=== PATIENT | female | born 1990 | race African-American/Black ===

== ENCOUNTER 2017-02-20 10:51 | Emergency (ER) | payer OTHER, SELFPAY ==
[2017-02-20] MEDS ORDERED: Ibuprofen 200 MG TAB ONE (12:31)
== END 2017-02-20 13:13 | disposition home or self-care (01) ==
LOC: ERS 10:51
DX: J10.1 Influenza due to other identified influenza virus with other respiratory manifestations (principal); I10 Essential (primary) hypertension
CPT/HCPCS: 87081; 87430; 99283

== ENCOUNTER 2017-06-01 11:27 | Emergency (ER) | payer OTHER ==
[2017-06-01 12:26] LABS: #Basophils 0.1 thou/uL (0.0-0.2); #Eosinphils 0.2 thou/uL (0.0-0.7); #Lymphocytes 1.7 thou/uL (1.20-3.40); %Basophils 1.1 % (0.0-1.0); %Eosinophils 2.5 % (0.0-10.0); %Lymphocytes 21.8 % (21.0-51.0); %Monocytes 12.5 % (0.0-10.0); Hemoglobin 11.8 g/dL (12.0-16.0); Mean Corpuscular HGB CONC 32.5 g/dL (32.0-36.0); Mean Corpuscular Hemoglobin 27.5 pg (27.0-31.0); Mean Corpuscular Volume 84.5 fl (81.0-99.0); Mean Platelet Volume 8.9 fL (7.4-10.4); Platelet Count 225 thou/uL (130-400); RBC Distribution Width 14.4 % (11.5-14.5)
[2017-06-01 12:33] LABS: ALT (SGPT) 13 U/L (8-55); AST (SGOT) 16 U/L (5-34); Albumin 3.9 g/dL (3.5-5.0); Alkaline Phosphatase 54 U/L (40-150); Anion Gap 10 mmol/L (10-20); BUN (Urea Nitrogen) 7 mg/dL (7.0-18.7); Bilirubin, Total 0.2 mg/dL (0.2-1.2); Calc. Creatinine Clearance 0 mL/min (70-130); Calcium 9.5 mg/dL (7.8-10.44); Carbon Dioxide 26 mmol/L (22-29); Chloride 107 mmol/L (98-107); Estimated GFR-MDRD Greater than 90; Globulin 3.1 g/dL (2.4-3.5); Glucose 88 mg/dL (70-105); Sodium 139 mmol/L (136-145)
[2017-06-01] MEDS ORDERED: Ondansetron ODT 8 MG TAB ONE (12:59)
[2017-06-01 13:29] LABS: Bilirubin Negative (Negative); Blood, Urine Negative (Negative); Clarity CLOUDY (Clear); Glucose, Urine (Dipstick) Negative (Negative); Leukocyte Moderate (Negative); Nitrite Positive (Negative); Protein, Urine (Dipstick) Trace mg/dL (Neg-Trace); Specific Gravity, Urine 1.021 (1.002-1.036); Urobilinogen 0.2 mg/dL (0.2-1.0); pH, Urine 6.5 (5.0-9.0)
[2017-06-01 13:32] LABS: Bacteria/HPF 4+ HPF (None Seen); Pathc Cast-AUWi Flag 0.72 (0-2.49); WBC/HPF 21-50 HPF (0-3)
[2017-06-01] MEDS ORDERED: Cephalexin 250 MG CAP ONE (13:39)
[2017-06-01 14:07] LABS: Other Casts/LPF None Seen LPF (0-3 Hyaline)
== END 2017-06-01 13:52 | disposition home or self-care (01) ==
LOC: ERS 11:27
DX: O23.41 Unspecified infection of urinary tract in pregnancy, first trimester (principal); O21.9 Vomiting of pregnancy, unspecified; O99.89 Other specified diseases and conditions complicating pregnancy, childbirth and the puerperium; R19.7 Diarrhea, unspecified; O10.919 Unspecified pre-existing hypertension complicating pregnancy, unspecified trimester; Z3A.01 Less than 8 weeks gestation of pregnancy
CPT/HCPCS: 36415; 80053; 81003; 81015; 84702; 85025; 96372

== ENCOUNTER 2017-07-01 12:02 | Emergency (ER) | payer OTHER, MEDICAID ==
[2017-07-01] MEDS ORDERED: diphenhydrAMINE 25 MG CAP ONE (12:47)
[2017-07-01] MEDS ORDERED: Metoclopramide HCl 10 MG TAB ONE (12:47)
[2017-07-01] MEDS ORDERED: Acetaminophen 325 MG TAB ONE (12:47)
== END 2017-07-01 14:20 | disposition home or self-care (01) ==
LOC: ERS 12:02
DX: O99.89 Other specified diseases and conditions complicating pregnancy, childbirth and the puerperium (principal); R51 Headache; I10 Essential (primary) hypertension; Z79.82 Long term (current) use of aspirin; Z3A.10 10 weeks gestation of pregnancy
CPT/HCPCS: 99283

== ENCOUNTER 2017-12-14 15:59 | Inpatient (IN) | payer OTHER ==
[2017-12-14 16:31] VITALS: BMI 36.3
[2017-12-14 17:41] LABS: Hemoglobin 9.4 g/dL (12.0-16.0); Mean Corpuscular Hemoglobin 24.5 pg (27.0-31.0); Mean Corpuscular Volume 74.1 fL (78.0-98.0); Mean Platelet Volume 10.7 fL (7.4-10.4); Platelet Count 192 thou/uL (130-400); RBC Distribution Width 16.3 % (11.5-14.5); Red Blood Cell (RBC) Count 3.83 mill/uL (4.20-5.40); White Blood Cell (WBC) Count 8.4 thou/uL (4.8-10.8)
[2017-12-14] MEDS ORDERED: Ondansetron HCl/PF 4 MG/2 ML Vial IVP PRN (17:54)
[2017-12-14] MEDS ORDERED: Promethazine HCl 25 MG/ML VIAL IM PRN (17:54)
--- NOTE | 2017-12-14 18:00 | PDOC.FPROB ---
FMR OB H&P: HPI - History of Present Illness Chief Complaint: Elevated BP Indentification: 27 year old @ 34.2 wks by LMP/7.6 wk sono History of Present Illness: Tona Lei is a 27 year old at 34.2 weeks who was sent from clinic this afternoon due to having severe range pressures. Pt denies headache, scotoma, abdominal pain/n/v/d. She reports some swelling in her upper extremities. She denies vaginal bleeding, LOF, and decrease in movement. She is being followed by MFM. Primary Care Physician: Dr. Thai Cruz FMR OB H&P: Current - Care : 4 Para: 3 - OB Labs Blood type: O RH: positive (adfasdf) Antibody Screen: negative HIV: positive RPR: negative HepBsAg: negative Rubella: immune Gonorrhea: negative Chlamydia: negative 1 hour gtt: Failed - 177 GBS: unknown H&H: 9.5/28.8 Platelets: 207 Additional labs: Baseline Cr: 0.6 (06/2017) 24 hr urine: 333 mg (06/2017) - First Trimester Ultrasound First trimester: Single IUP with no anomalies noted; FHR 147 bpm. - Anatomy Survey Anatomy survey: Cephalic presentation Anterior fundal placenta Suspected CHD () noted. - Additional Ultrasound Additional: Follow-up US (10/01/17) Breech presentation, heart defect noted. FMR OB H&P: History - Past Medical History PMH: Chronic hypertension - OB History OB History: Chronic hypertension on ASA and Labetalol First : @ term, no complications Second : primary C/S due to placenta previa Thrid : repeat LTCS for failed . 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 Most recent Pap in 06/2017 was normal. - Surgical History Sx History: C/S x 2 - Social History Social History: Denies tobacco, alcohol, and drug use. - Family History Family History: HTN, DM II FMR OB H&P: Medications - Current Home Medications: Medication Instructions Recorded Confirmed Type Aspirin [Ecotrin] 81 mg PO DAILY 12/14/17 12/14/17 History Ferrous Sulfate 325 mg PO BID 12/14/17 12/14/17 History Labetalol [Normodyne] 300 mg PO BID 12/14/17 History Pnv 102/Iron/Folic/Dha/Lutein 12/14/17 History [Similac Combo Pack] Allergies/Adverse Reactions: Allergies Allergy/AdvReac Type Severity Reaction Status Date / Time No Known Drug Allergies Allergy Verified 12/14/17 16:32 FMR OB H&P: ROS - Review of Systems General: denies: fever/chills Eyes: denies: eye pain, vision changes, scotomas Cardiovascular: denies: chest pain, palpitation Respiratory: denies: cough, shortness of breath Gastrointestinal: denies: abdominal pain, nausea, vomiting, constipation Genitourinary (Female): denies: vaginal bleeding, contractions Musculoskeletal: denies: swelling Neurologic: denies: headache Integumentary: denies: itching, rash Psychological: denies: depression, anxiety FMR OB H&P: Vital Signs - Maternal Vital signs: Vital Signs - First Documented Temp Pulse Resp BP Pulse Ox 98.2 F 123 H 18 139/95 H 99 12/14/17 16:27 12/14/17 16:27 12/14/17 16:27 12/14/17 16:27 12/14/17 16:27 - Heart Tones Baseline: 150 Variability: moderate Acceleration: present Deceleration: absent Category: category 1 [place] contractions every: absent FMR OB H&P: Physical Exam - Physical Exam General: NAD, awake, alert and oriented HEENT: normocephalic and atraumatic, EOMI Neck: supple Heart: normal S1/S2, no murmurs/rubs/gallops, pulses present, no edema, other ( tachycardic) General: CTAB Abdomen: soft, gravid Musculoskeletal: FROM in all four extremities Neurological: cranial nerves II through XII intact, DTR +2, no clonus Skin: no rash Psychiatric: normal mood and affect FMR OB H&P: Results - Labs Lab results: Laboratory Results - last 24 hr 12/14/17 17:24 WBC 8.4 RBC 3.83 L Hgb 9.4 L Hct 28.3 L MCV 74.1 L MCH 24.5 L MCHC 33.0 RDW 16.3 H Plt Count 192 MPV 10.7 H FMR OB H&P: A/P Disposition: Pt is a 27 year old @ 34.2 weeks with a history of chronic hypertension with recent severe range pressures. - we will admit pt for observation overnight - will rule out super-imposed pre-eclampsia with severe features with CBC, CMP, uric acid, and urine/protein cr, and 24 hr-urine - serial BP monitoring. - We will also obtain BPP with growth scan. - given that pt has had diffculty completing 3-hr GTT outpatient, will order for tomorrow morning. - c/s has already been scheduled for 37 wks gestation (01/07/18) - If pt has recurrent severe hypertension, pt develops severe symptoms, or if BPP/growth are abnormal will need to pursue delivery urgently Attending Addendum - Attending Addendum Date/Time: 12/14/171937 I personally evaluated the patient and discussed the management with Dr. Nugent. I agree with and repeated the History, Examination, Assessment and Plan documented above with any addition or exceptions noted below. Patient with no severe symptoms and pressures c/w home pressures. Exam mild tachycardia, regular, no w/r/r or crackles, no clonus or increased dtr's. Due to pressures she was sent over for will observe for 24h urine. Monitor HR and BP.
[2017-12-14 18:07] LABS: ALT (SGPT) Less than 7 U/L (8-55); AST (SGOT) 12 U/L (5-34); Albumin 3.5 g/dL (3.5-5.0); Alkaline Phosphatase 120 U/L (40-150); Anion Gap 12 mmol/L (10-20); BUN (Urea Nitrogen) 4 mg/dL (7.0-18.7); Bilirubin, Total 0.4 mg/dL (0.2-1.2); Calc. Creatinine Clearance 216 mL/min (70-130); Calcium 8.8 mg/dL (7.8-10.44); Carbon Dioxide 19 mmol/L (22-29); Chloride 108 mmol/L (98-107); Estimated GFR-MDRD Greater than 90; Globulin 2.9 g/dL (2.4-3.5); Glucose 80 mg/dL (70-105); Potassium 3.7 mmol/L (3.5-5.1); Protein, Total 6.4 g/dL (6.0-8.3); Sodium 135 mmol/L (136-145); Uric Acid 4.3 mg/dL (2.6-6.0)
[2017-12-14] MEDS ORDERED: Ferrous Sulfate 325 MG TAB PO SCH (18:45)
[2017-12-14 19:14] LABS: Creatinine, Urine 98.24 mg/dL (47-110)
--- NOTE | 2017-12-14 21:28 | ULT ---
LIMITED OBSTETRICAL ULTRASOUND BIOPHYSICAL PROFILE: 12/14/17 COMPARISON: None. HISTORY: Growth scan, patient with hypertension. TECHNIQUE: Multiplanar pinon scale sonographic imaging of the gravid uterus obtained. FINDINGS: A single intrauterine gestation is present demonstrating a vertex presentation. Placenta is located a nteriorly with no evidence for previa or abruption. heart rate is 132 beats per minute. Secondary to gestational, anatomy is not well assessed on this exam. The intracranial con tents and spine are note well assessed. Urinary bladder and kidneys appear grossly unremarkable. Four chamber heart view appears within normal limits. A three vessel cord is present. Amniotic fluid index is 14 cm. Umbilical arterial doppler is performed with color flow and spectral analysis demonstrating a peak sy stolic velocity of 88 cm/s and a systolic/diastolic ratio of 2.1. BIOMETRY: BPD 8.6 cm 34 weeks, 5 days HC 32.0 cm 36 weeks, 1 day AC 31.7 cm 35 weeks, 4 days FL 6.9 cm 35 weeks, 3 days Average age based on ultrasound is 35 weeks, 3 days with estimated date of delivery on 01/15/18. Estim ated weight is 2697 grams plus/minus 399 grams. The triage register nurse reports a 2 out of 2 score for tone, breathing, movement and amniot ic fluid, consistent with a normal 8 out of 8 biophysical profile. IMPRESSION: Obstetrical ultrasound and biophysical profile as described above. POS: [facility]
[2017-12-14] MEDS: Labetalol 100 MG TAB PO SCH (21:30)
[2017-12-14] MEDS ORDERED: Acetaminophen 500 MG TAB PO SCH (22:30)
[2017-12-14] MEDS: Lactated Ringer's 1,000 ML IV SCH (22:40)
--- NOTE | 2017-12-15 06:01 | PDOC.FM ---
- Subjective Subjective: Patient has headache that started right after arriving to the hospital. States that tylenol did not help. Otherwise feeling well. States she is having a baby boy and has boys at home! - Objective Vital Signs & Weight: Vital Signs (12 hours) Temp Pulse Resp BP 12/15/17 05:00 98.4 F 18 12/14/17 23:00 98.4 F 78 12/14/17 21:30 78 140/90 12/14/17 21:00 98.4 F 78 18 Weight Weight 96.162 kg Result Diagrams: 12/14/17 17:24 12/14/17 17:24 <Candis Pak - Last Filed: 12/15/17 07:22> - Objective Vital Signs & Weight: Vital Signs (12 hours) Pulse BP 12/15/17 09:01 100 121/69 Weight Weight 96.162 kg Result Diagrams: 12/14/17 17:24 12/14/17 17:24 <Neto Mcelroy - Last Filed: 12/15/17 17:50> Phys Exam - Physical Examination Constitutional: NAD HEENT: PERRLA dry MMM Neck: no nodes, supple Respiratory: no wheezing, clear to auscultation bilateral Cardiovascular: RRR 1/6 systolic murmur Gastrointestinal: soft, positive bowel sounds gravid Musculoskeletal: pulses present no pitting edema Neurological: moves all 4 limbs patellar reflexes 2+, ankle clonus not present Psychiatric: normal affect, A&O x 3 Skin: no rash <Candis Pak - Last Filed: 12/15/17 07:22> Dx/Plan (1) Chronic hypertension Code(s): I10 - ESSENTIAL (PRIMARY) HYPERTENSION Status: Chronic (2) headache in third trimester Code(s): O26.893 - OTH RELATED CONDITIONS, THIRD TRIMESTER; R51 - HEADACHE Status: Acute - Plan Plan: Disposition: Pt is a 27 year old @ 34.2 weeks with a history of chronic hypertension with recent severe range pressures. - admitted for observation overnight - will rule out super-imposed pre-eclampsia with severe features with CBC, CMP, uric acid, and urine/protein cr, and 24 hr-urine -24 hr urine pending -CBC, CMP, Uric Acid WNL - serial BP monitoring. VSS overnight - BPP 8. POLINA adequate. Growth appropriate. Anterior placenta. EFW 2697 g +/- 399 g - 3-hr GTT today, as patient did not passed 1 hr glucose and 3 hr was not performed - c/s has already been scheduled for 37 wks gestation (01/07/18) - Consider adding reglan/benadryl since her headache was non-responsive to tylenol - If pt has recurrent severe hypertension or if pt develops severe symptoms will need to pursue delivery urgently - Plan to discharge today with precautions if VSS and if 24 hr protein WNL Pt is HIV negative, entered in error on her H&P. <Candis Pak - Last Filed: 12/15/17 07:22> Attending Addendum - Attending Addendum Date/Time: 12/15/17 [id number] I personally evaluated the patient and discussed the management with Dr. Pak. I agree with and repeated the History, Examination, Assessment and Plan documented above with any addition or exceptions noted below. No severe symptoms or signs. Shortly after rounding her headache resolved with just tylenol. Her labs are thus far reassuring, as are her pressures. Anticipate discharge if no worsening of the above. <Neto Mcelroy - Last Filed: 12/15/17 17:50>
[2017-12-15] MEDS ORDERED: Metoclopramide HCl 10 MG/2 ML VIAL IVP SCH (08:45)
[2017-12-15] MEDS: Ferrous Sulfate 325 MG TAB PO SCH (09:00)
[2017-12-15] MEDS: Labetalol 100 MG TAB PO SCH ×2 (09:01→21:12)
[2017-12-15] MEDS ORDERED: Acetaminophen 325 MG TAB PO PRN (09:17)
[2017-12-15] MEDS: Lactated Ringer's 1,000 ML IV SCH ×2 (09:55→12:47)
[2017-12-15] MEDS ORDERED: Metoclopramide HCl 10 MG/2 ML VIAL IM SCH (12:15)
[2017-12-15] MEDS ORDERED: diphenhydrAMINE 50 MG/ML VIAL IM SCH (12:15)
[2017-12-15] MEDS: diphenhydrAMINE 25 MG CAP PO SCH ×2 (12:47→21:12)
[2017-12-15] MEDS ORDERED: metFORMIN 500 MG TAB PO SCH (19:15)
--- NOTE | 2017-12-15 19:27 | PDOC.EVN ---
Event Note - Event Note Event Note: Failed 3hr GTT. Stating fasting and 2 hr PP accuchecks. Start metformin 500 mg BID. Will need to be d/c with rx for glucometer and needs diabetic teaching.
[2017-12-15] MEDS ORDERED: Dextrose 5% in Water 1,000 ML IV PRN (19:28)
[2017-12-15] MEDS ORDERED: Dextrose 50% Abboject 50 ML SYRINGE SLOW IVP PRN (19:28)
[2017-12-15] MEDS ORDERED: HumaLOG 300 UNITS/3 ML VIAL SC PRN ×2 (19:28)
[2017-12-15 19:29] LABS: Collection Duration 24 hrs; Urine Total Volume 2200 mL (600-1600)
[2017-12-15 19:51] LABS: Protein, Urine Less than 10 mg/dL (1-14)
[2017-12-15] MEDS ORDERED: Labetalol HCl 100 MG/20 ML VIAL ONE (21:00)
[2017-12-15] MEDS ORDERED: diphenhydrAMINE 25 MG CAP PO PRN (21:05)
--- NOTE | 2017-12-16 06:23 | PDOC.FM ---
- Subjective Subjective: Feeling well this morning, no headache. Says she feels tired this morning. Baby is moving well. - Objective Vital Signs & Weight: Vital Signs (12 hours) Temp Pulse 12/15/17 21:12 104 H 12/15/17 19:52 98.9 F 104 H 12/15/17 19:00 98.9 F Weight Weight 96.162 kg Result Diagrams: 12/14/17 17:24 12/14/17 17:24 <Candis Pak - Last Filed: 12/16/17 07:31> - Objective Vital Signs & Weight: Vital Signs (12 hours) Pulse BP 12/16/17 10:14 112 H 137/90 Weight Weight 96.162 kg Result Diagrams: 12/14/17 17:24 12/14/17 17:24 <Neto Mcelroy - Last Filed: 12/16/17 10:27> Phys Exam - Physical Examination Constitutional: NAD Neck: no nodes, supple Respiratory: no wheezing, clear to auscultation bilateral Cardiovascular: no significant murmur Regular rhythm, tachycardic Gastrointestinal: soft, positive bowel sounds gravid Musculoskeletal: no edema, pulses present Neurological: moves all 4 limbs Patellar reflexes 2+ Psychiatric: normal affect, A&O x 3 Skin: normal turgor <Candis Pak - Last Filed: 12/16/17 07:31> Dx/Plan (1) Chronic hypertension Code(s): I10 - ESSENTIAL (PRIMARY) HYPERTENSION Status: Chronic (2) headache in third trimester Code(s): O26.893 - OTH RELATED CONDITIONS, THIRD TRIMESTER; R51 - HEADACHE Status: Acute - Plan Plan: Pt is a 27 year old @ 34.2 weeks with a history of chronic hypertension with recent severe range pressures and new dx GDM. Chronic HTN with severe range pressures - blood pressures stable - Ruled out super-imposed pre-eclampsia with severe features with CBC, CMP, uric acid, and urine/protein cr, and 24 hr-urine -24 hr urine negative (protein too small to quantify) -CBC, CMP, Uric Acid WNL - BPP 10/17. POLINA adequate. Growth appropriate. Anterior placenta. EFW 2697 g +/- 399 g - If pt has recurrent severe hypertension or if pt develops severe symptoms will need to pursue delivery urgently - Patient has home BP cuff, discussed taking pressures at home, and going to ED if pressures >160/110 sIUP - c/s has already been scheduled for 37 wks gestation (01/07/18) - BPP 10/17. POLINA adequate. Growth appropriate. Anterior placenta. EFW 2697 g +/- 399 g Headache, most likely Migraines - Pt has history of migraines - Sensitive to light - Headache yesterday was responsive to tylenol GDM -started on metformin 500 BID yesterday, discussed side effect of nausea/ gastric upset -Discussed risk of macrosomia and hypoglycemia in -DM education today -Discharge with glucometer, close follow up with PCP -Discussed recording fasting and PP glucoses at home. <Candis Pak - Last Filed: 12/16/17 07:31> Attending Addendum - Attending Addendum Date/Time: 12/16/17 1026 I personally evaluated the patient and discussed the management with Dr. Pak. I agree with and repeated the History, Examination, Assessment and Plan documented above with any addition or exceptions noted below. Negative protein. BP's extremely well controlled. No severe symptoms, abd pain , headache, n/v/f/c. +FM. No ctx. Reassuring FHTs. Plan for d/c today with close follow up. Diabetic supplies and metformin Rx'd. Continue ASA, PNV, iron at home. <Neto Mcelroy - Last Filed: 12/16/17 10:27>
[2017-12-16] MEDS ORDERED: metFORMIN 500 MG TAB PO SCH (08:00)
[2017-12-16] MEDS: Labetalol 100 MG TAB PO SCH (10:14)
[2017-12-16] MEDS: Ferrous Sulfate 325 MG TAB PO SCH (10:15)
[2017-12-16 10:29] VITALS: TEMP 98.4
[2017-12-16 10:52] VITALS: BP 133/77
--- NOTE | 2017-12-17 21:52 | DIS-2 ---
DATE OF ADMISSION: 12/14/2017 DATE OF DISCHARGE: 12/16/2017 RESIDENT: Candis Pak MD ADMITTING ATTENDING: Neto Mcelroy MD DISCHARGE ATTENDING: Neto Mcelroy MD CONSULTATIONS: None. PROCEDURES: 1. BPP on 12/14/2017 was 8/8, POLINA was 14. 2. ultrasound on 12/14/2017 findings: Single intrauterine gestation present demonstrating vertex presentation. Placenta is located anteriorly with no evidence of previa or abruption. heart rate is 132 beats per minute. Three-cord vessel present. PRIMARY DIAGNOSIS: 1. Chronic hypertension with severe range pressures during . 2. Gestation Diabetes Mellitus. SECONDARY DIAGNOSES: 1. Single intrauterine . 2. Migraines DISCHARGE MEDICATIONS: 1. Aspirin 81 mg p.o. daily. 2. Ferrous sulfate 325 mg p.o. b.i.d. 3. Labetalol 300 mg p.o. b.i.d. 4. Metformin 500 mg p.o. b.i.d. with meals. 5. vitamin 1 tab p.o. daily. DISCONTINUED MEDICATIONS: None. HISTORY OF PRESENT ILLNESS AND HOSPITAL COURSE: Tona Lei is a 27-year-old G4, P3 at 34.4 weeks by LMP, consistent with 7.6-week sono. She was sent from clinic due to having severe range pressures. The patient denied headache, scotoma, abdominal pain, nausea, vomiting, or diarrhea. She reported some swelling in upper extremities. She denied vaginal bleeding, loss of fluid, and decreased movement. She was being followed by [facility]. Her primary care physician is Dr. Thai Cruz. For her chronic hypertension with concern for preeclampsia, her blood pressures remained stable in the hospital. A 24-hour urine was negative. Protein was too small to quantify. CBC, CMP, uric acid, urine protein creatinine ratio were all within normal limits. BPP was 8/8. POLINA was adequate. Growth is appropriate. Ultrasound showed an anterior placenta. Estimated weight was 2697 grams. The patient has a home blood pressure cuff. She was instructed to take her pressures at home and to return to the emergency room if her blood pressures exceeded 160/110. For a single intrauterine , a has been scheduled for 37 weeks ' gestation on 01/07/2018. For her headache, these are most likely migraines. The patient has light sensitivity. Her headache was responsive to Tylenol. Gestational diabetes. She has had a 3-hour GTT performed. She failed the 3- hour GTT. She was started on metformin 500 b.i.d. The side effects of nausea and gastric upset were discussed. We discussed the risks of macrosomia, and hypoglycemia in the . The patient was discharged with a prescription for glucometer and test strips, and instructed to take fasting and postprandial 2- hour glucoses at home and record her numbers. The patient can follow up with her PCP. DISPOSITION: Stable. DISCHARGE INSTRUCTIONS: 1. Location: Home. 2. Diet: Diabetic diet. 3. Activity: As tolerated. 4. Follow up with PCP within 7 days. PIERRE
== END 2017-12-16 10:56 | disposition home health service (06) | DRG 833 ==
LOC: L&D/OP 15:59 → L&D 18:23
PROVIDERS: ADMIT Student in an Organized Health Care Education/Training Program; ATTEND Student in an Organized Health Care Education/Training Program
DX: O10.913 Unspecified pre-existing hypertension complicating pregnancy, third trimester (principal); Z3A.34 34 weeks gestation of pregnancy; O24.419 Gestational diabetes mellitus in pregnancy, unspecified control; G43.909 Migraine, unspecified, not intractable, without status migrainosus
CPT/HCPCS: 36415; 36416; 76815; 76819; 80053; 82570; 82951; 82952; 84156; 84550; 85027; 99285; J1200; J2765

== ENCOUNTER 2017-12-21 22:04 | Observation (INO) | payer OTHER ==
[2017-12-21 22:45] VITALS: BMI 36.0
[2017-12-21] MEDS ORDERED: Lactated Ringer's 1,000 ML IV SCH (23:30)
--- NOTE | 2017-12-22 | PDOC.FPROB ---
FMR OB H&P: HPI - History of Present Illness Chief Complaint: Contractions, Palpitations Indentification: 27 year old History of Present Illness: 27 year old at 35.2 wks by LMP/7.6 wk sonmarilee with LULA of 01/23/2018 presents with contractions that were 3-5 minutes apart and lasted from 7-9 PM. Patient states that upon arriving to the ED, her contractions resolved. She also endorses feeling of racing heart associated with mild shortness of breath. Patient denies headache, vision changes, scotoma, RUQ pain, edema, vaginal discharge, vaginal bleeding. Patient endorses good movement. Primary Care Physician: KARUNA Cruz FMR OB H&P: Current - Care : 4 Para: 3 Gestational age: 35.3 wks Due date: 01/23/2018 Dating Criteria: LMP/7.6 wk ultrasound - OB Labs Blood type: O RH: positive Antibody Screen: negative HIV: negative RPR: negative HepBsAg: negative Rubella: immune Gonorrhea: negative Chlamydia: negative Pap Smear: negative for intraepithelial lesion or malignancy 1 hour gtt: 177 3 hour GTT: 101, 161, 164, 133 GBS: unknown H&H: 9.2/29.2 Platelets: 204 FMR OB H&P: History - Past Medical History PMH: HTN - OB History OB History: GDM, cHTN, Hx of pre-E in prior with C/S at 36 wks, Hx of placenta previa s/p C/S - Surgical History Sx History: CS x2 - Social History Social History: Denies alcohol, drug, or tobacco use FMR OB H&P: Medications - Current Home Medications: Medication Instructions Recorded Confirmed Type Aspirin [Ecotrin Low Strength] 81 mg PO DAILY 12/14/17 12/21/17 History Ferrous Sulfate 325 mg PO BID 12/14/17 12/21/17 History Labetalol [Normodyne] 300 mg PO BID 12/14/17 12/21/17 History Pnv 102/Iron/Folic/Dha/Lutein 1 tab PO DAILY 12/14/17 12/21/17 History [Similac Combo Pack] metFORMIN [Glucophage] 500 mg PO BID-WM #30 tab 12/16/17 12/21/17 Rx Metoclopramide HCl [Reglan] 5 mg PO BID PRN 12/21/17 12/21/17 History diphenhydrAMINE [Benadryl] 25 mg PO HS PRN 12/21/17 12/21/17 History Allergies/Adverse Reactions: Allergies Allergy/AdvReac Type Severity Reaction Status Date / Time No Known Drug Allergies Allergy Verified 12/14/17 16:32 FMR OB H&P: ROS - Review of Systems General: denies: fever/chills, weight/appetite/sleep changes, fatigue Eyes: denies: vision changes, double vision, scotomas ENT: denies: nasal congestion, rhinorrhea, sore throat Cardiovascular: reports: palpitation. denies: chest pain, edema Respiratory: reports: shortness of breath. denies: cough, congestion Gastrointestinal: denies: abdominal pain, nausea, vomiting, diarrhea Genitourinary (Female): reports: polyuria. denies: dysuria, hematuria, vaginal discharge, vaginal pain, vaginal bleeding, contractions, vaginal pressure Musculoskeletal: denies: pain Neurologic: denies: seizures, weakness Integumentary: denies: itching, rash Hematologic/Lymphatic: denies: prolonged or excessive bleeding Psychological: denies: depression, anxiety FMR OB H&P: Vital Signs - Maternal Vital signs: Vital Signs - First Documented Temp Pulse Resp BP 98.7 F 122 H 16 129/87 12/21/17 22:38 12/21/17 22:38 12/21/17 22:38 12/21/17 22:38 - Heart Tones Baseline: 130 Variability: moderate Acceleration: present Deceleration: absent Category: category 1 [place] contractions every: Few; irregular FMR OB H&P: Physical Exam - Physical Exam General: NAD, awake, alert and oriented HEENT: normocephalic and atraumatic, MMM, grossly normal vision, grossly normal hearing Neck: supple Heart: pulses present, no edema Deviation from normal: Tachycardic, difficult to assess for murmur General: CTAB, no respiratory distress, good air movement, no wheezing Abdomen: soft, gravid, non-tender, bowel sound present Musculoskeletal: pulses present Neurological: no tremor, no focal deficit Skin: no rash, capillary refill <2 seconds Psychiatric: good judgement and insight, normal mood and affect FMR OB H&P: A/P - Problem List (1) Tachycardia Current Visit: Yes Status: Acute Code(s): R00.0 - TACHYCARDIA, UNSPECIFIED (2) Chronic hypertension affecting Current Visit: Yes Status: Chronic Code(s): O10.919 - UNSP PRE-EXISTING HTN COMP , UNSP TRIMESTER (3) Gestational diabetes Current Visit: Yes Status: Chronic Code(s): O24.419 - GESTATIONAL DIABETES MELLITUS IN , UNSP CONTROL Qualifiers: Trimester: third trimester (4) Current Visit: Yes Status: Acute Qualifiers: Weeks of gestation: 35 weeks Qualified Code(s): Z3A.35 - 35 weeks gestation of Assessment and Plan: 27 year old at 35.3 wks by LMP/7.6 wk sono presents with contractions and "racing heart" 1. Maternal tachycardia - HR 105-130's - Pt adequately rehydrated with 1L of LR - Stable anemia with Hg 9.2; no other VS abnormalities and pt asymptomatic - Pt endorsed shortness of breath initially on presentation. The shortness of breath has since resolved. - CXR pending, will consider VQ scan if negative and D-dimer above threshold in - Echo pending for further evaluation of persistent tachycardia - Continue to monitor pulse - TSH pending 2. cHTN - Concern for superimposed pre-eclampsia - Previously well controlled BP on medication; elevated value x1 >140/90 - Repeat SBP 130's - Pt at risk for PTD; given one dose of steroids now and advised that would need 2nd dose in 24 hours - Continue to monitor BP - Continue current dose of labetolol BID - Pt scheduled for rLTCS on 01/07/2018 3. GDM - Q6H accuchecks - CC diet - Continue metformin 4. Vaginal discharge - Green/foul smelling - VP3 pending - No hx of STD's and pt endorses being with same partner. Pt has no concerns about STD's 5. Hx of Pre-E - Pre-E labs negative thus far; still pending Uprotein/Ucreatinine ratio 6. Hx of placenta previa in prior requiring C/S - Anterior fundal placenta noted on recent ultrasounds Disposition: Stable. Will obs patient and continue further cardiac workup. Discussion: Date/Time: 12/21/17 9842 This H&P was discussed with Dr. Gillis who agrees with the above documentation and plan. Signature: Samantha Montes DO PGY-2 Attending Addendum - Attending Addendum Date/Time: 12/22/17 2459 I personally evaluated the patient and discussed the management with Dr. Amato a time of admission. I agree with the History, Examination, Assessment and Plan documented above with any addition or exceptions noted below.
[2017-12-22 00:29] LABS: Hemoglobin 9.2 g/dL (12.0-16.0); Mean Corpuscular HGB CONC 31.5 g/dL (32.0-36.0); Mean Corpuscular Hemoglobin 23.2 pg (27.0-31.0); Mean Corpuscular Volume 73.7 fL (78.0-98.0); Mean Platelet Volume 11.3 fL (7.4-10.4); Platelet Count 204 thou/uL (130-400); RBC Distribution Width 17.1 % (11.5-14.5); Red Blood Cell (RBC) Count 3.97 mill/uL (4.20-5.40); White Blood Cell (WBC) Count 9.2 thou/uL (4.8-10.8)
[2017-12-22] MEDS ORDERED: Betamet Acet/Betamet Na Ph 30 MG/5 ML VIAL IM SCH (00:45)
[2017-12-22 00:50] LABS: ALT (SGPT) Less than 7 U/L (8-55); AST (SGOT) 13 U/L (5-34); Albumin 3.6 g/dL (3.5-5.0); Alkaline Phosphatase 134 U/L (40-150); Anion Gap 13 mmol/L (10-20); BUN (Urea Nitrogen) 7 mg/dL (7.0-18.7); Bilirubin, Total 0.4 mg/dL (0.2-1.2); Calc. Creatinine Clearance 200 mL/min (70-130); Calcium 9.3 mg/dL (7.8-10.44); Carbon Dioxide 21 mmol/L (22-29); Chloride 106 mmol/L (98-107); Estimated GFR-MDRD Greater than 90; Globulin 2.6 g/dL (2.4-3.5); Glucose 78 mg/dL (70-105); Potassium 4.4 mmol/L (3.5-5.1); Protein, Total 6.2 g/dL (6.0-8.3); Sodium 136 mmol/L (136-145)
[2017-12-22 00:53] LABS: #Eosinphils 0.2 thou/uL (0.0-0.7); #Lymphocytes 2.2 thou/uL (1.20-3.40); #Monocytes 1.1 thou/uL (0.11-0.59); #Neutrophils 5.8 thou/uL (1.40-6.50); %Basophils 0.5 % (0.0-1.0); %Eosinophils 1.9 % (0.0-10.0); %Lymphocytes 23.5 % (21.0-51.0); %Monocytes 11.8 % (0.0-10.0); %Neutrophils 62.3 % (42.0-75.0); Hypochromia SLIGHT = 6-15 cells (100X) (0-5/hpf); MDiff Complete? YES; Microcytosis SLIGHT = 6-15 cells (100X) (0-5/hpf); PLT Morphology Comment Appears Adequate; Tear Drops SLIGHT = 2-5 cells (100X) (0-1/hpf)
[2017-12-22] MEDS ORDERED: Betamet Acet/Betamet Na Ph 30 MG/5 ML VIAL ONE (01:06)
[2017-12-22] MEDS ORDERED: Ondansetron HCl/PF 4 MG/2 ML Vial IVP PRN (01:35)
[2017-12-22] MEDS ORDERED: Promethazine HCl 25 MG/ML VIAL IM PRN (01:35)
[2017-12-22] MEDS ORDERED: Docusate 100 MG CAP PO PRN (01:35)
[2017-12-22 01:58] LABS: Creatinine, Urine 123.54 mg/dL (47-110); Protein, Urine Random Quant Less than 10 mg/dL (1-14)
[2017-12-22] MEDS ORDERED: diphenhydrAMINE 25 MG CAP PO PRN (02:04)
[2017-12-22] MEDS ORDERED: Labetalol 100 MG TAB PO SCH ×2 (02:15→09:00)
--- NOTE | 2017-12-22 02:27 | PDOC.EVN ---
Event Note - Event Note Event Note: D-Dimer within range for (1.10, which is less than the 1.7 cutoff), TSH wnl, Urine protein/creatinine ratio wnl (highest possible value .08) Less concern for PE or thyroid dysfunction. Continue with CXR and echo tomorrow.
[2017-12-22 03:12] VITALS: TEMP 98.3
[2017-12-22] MEDS ORDERED: Non-Formulary Item 1 EACH (Ferrous Sulfate [Ferrous Sulfate] 325 MG) PO SCH (08:00)
[2017-12-22] MEDS ORDERED: metFORMIN 500 MG TAB PO SCH (08:00)
[2017-12-22] MEDS ORDERED: Ferrous Sulfate 325 MG TAB PO SCH (08:00)
--- NOTE | 2017-12-22 08:12 | RAD ---
CHEST 1 VIEW: Date: 12/22/17 HISTORY: 27-year-old female with history of tachycardia and shortness of breath. COMPARISON: 06/12/16. FINDINGS: Heart size is normal, given somewhat less than optimal inspiration and portable technique. No conflue nt pneumonia, overt edema, or pleural effusion. IMPRESSION: Normal to borderline enlarged heart. No pneumonia, edema, pleural effusion, or other acute intrathora cic disease. POS: [facility]
[2017-12-22 08:54] VITALS: BP 137/60
[2017-12-22] MEDS ORDERED: Aspirin 81 mg Enteric Coated Tablet PO SCH (09:00)
[2017-12-22] MEDS ORDERED: Prenatal Vitamin 1 TAB PO SCH (09:00)
--- NOTE | 2017-12-22 11:08 | PDOC.FM ---
- Subjective Subjective: Patient doing well this AM. No significant overnight events. Patient states that it does not feel as though her heart is racing anymore, and she denies shortness of breath, headache, RUQ pain, N/V/D, calf pain. Patient notified of positive BV and trichomonas results today. She was very tearful and upset about the positive trichomonas results. - Objective MAR Reviewed: Yes Vital Signs & Weight: Vital Signs (12 hours) Temp Pulse Resp BP 12/22/17 08:53 105 H 137/60 12/22/17 03:08 98.3 F 105 H 16 12/22/17 02:35 122 H Weight Weight 95.254 kg Result Diagrams: 12/22/17 00:06 12/22/17 00:06 EKG Reviewed by me: Yes (sinus tachycardia) Radiology Reviewed by me: Yes (CXR with borderline cardiomegaly) <Samantha Montes - Last Filed: 12/22/17 12:07> - Objective Vital Signs & Weight: Vital Signs (12 hours) Temp Pulse Resp BP 12/22/17 08:53 105 H 137/60 12/22/17 03:08 98.3 F 105 H 16 12/22/17 02:35 122 H Weight Weight 95.254 kg Result Diagrams: 12/22/17 00:06 12/22/17 00:06 <Tolu Gillis - Last Filed: 12/22/17 12:32> Phys Exam - Physical Examination Constitutional: NAD HEENT: moist MMs Respiratory: no wheezing, clear to auscultation bilateral Tachycardia Gastrointestinal: soft, non-tender Musculoskeletal: no edema, pulses present Neurological: non-focal Psychiatric: A&O x 3 Skin: no rash, cap refill <2 seconds <Samantha Montes - Last Filed: 12/22/17 12:07> Dx/Plan (1) Tachycardia Code(s): R00.0 - TACHYCARDIA, UNSPECIFIED Status: Acute (2) Chronic hypertension affecting Code(s): O10.919 - UNSP PRE-EXISTING HTN COMP , UNSP TRIMESTER Status : Chronic (3) Gestational diabetes Code(s): O24.419 - GESTATIONAL DIABETES MELLITUS IN , UNSP CONTROL Status: Chronic Qualifiers: Trimester: third trimester (4) Status: Acute Qualifiers: Weeks of gestation: 35 weeks Qualified Code(s): Z3A.35 - 35 weeks gestation of - Plan Plan: 27 year old at 35.3 wks by LMP/7.6 wk sono Maternal tachycardia in - HR 105-120's - CXR showed borderline cardiomegaly - PE ruled out; D-dimer 1.1 (normal range for ) - EKG showed sinus tachycardia - TSH wnl - Stable microcytic anemia; 9.4 --> 9.2. Asymptomatic - Echo pending; rule out cardiomyopathy - Will send patient home to do 24 hour urine metanephrines to evaluate for pheochromocytoma; low suspicion cHTN - BP stable; one BP around 23:00 with SBP 148. All other BP's <140/90 - Continue labetolol BID - Continue monitoring BP outpatient - Scheduled for repeat C/S on 01/07/2018; recommend rescheduling to 37 wks GDM - Appears well controlled on metformin - Continue metformin sIUP - at 35.3 weeks - see plan as above Bacterial vaginosis - Flagyl TID for 7 days Trichomonas - Flagyl TID for 7 days - Will test for GC/CT due to positive trichomonas Dispo: Stable. Anticipate d/c home today. Samantha Montes, PGY-2 <Samantha Montes - Last Filed: 12/22/17 12:07> (1) Tachycardia Code(s): R00.0 - TACHYCARDIA, UNSPECIFIED Status: Acute (2) Chronic hypertension affecting Code(s): O10.919 - UNSP PRE-EXISTING HTN COMP , UNSP TRIMESTER Status : Chronic (3) Gestational diabetes Code(s): O24.419 - GESTATIONAL DIABETES MELLITUS IN , UNSP CONTROL Status: Chronic Qualifiers: Trimester: third trimester (4) Status: Acute Qualifiers: Weeks of gestation: 35 weeks Qualified Code(s): Z3A.35 - 35 weeks gestation of <Tolu Gillis - Last Filed: 12/22/17 12:32> Attending Addendum - Attending Addendum Date/Time: 12/22/17 1232 I personally evaluated the patient and discussed the management with Dr. Montes. I agree with the History, Examination, Assessment and Plan documented above with any addition or exceptions noted below. <Tolu Gillis - Last Filed: 12/22/17 12:32>
[2017-12-22] MEDS ORDERED: metroNIDAZOLE 250 MG TAB PO SCH ×2 (12:00→15:00)
--- NOTE | 2017-12-22 12:56 | PDOC.EVN ---
Event Note - Event Note Event Note: Echo showed EF 55-60% with trace mitral and tricuspid regurgitation. Trivial pericardial effusion noted. Plan to d/c patient home. Will send patient home with jug to collect 24 hour urine metanephrines. She will be instructed to take jug to [facility] lab after 24 hours of collection. Patient also advised to come back tomorrow for 2nd steroid injection. Patient will be notified of GC/CT results and treated accordingly. Samantha Montes DO PGY-2 12:52 PM
[2017-12-26 01:41] LABS: Chlamydia by PCR Not Detected (NotDetected); GC by PCR Not Detected (NotDetected)
== END 2017-12-22 14:04 | disposition home or self-care (01) ==
LOC: L&D/OP 22:04 → L&D 12-22 02:56
PROVIDERS: ADMIT Family Medicine; ATTEND Family Medicine
DX: O99.89 Other specified diseases and conditions complicating pregnancy, childbirth and the puerperium (principal); R00.0 Tachycardia, unspecified; O47.1 False labor at or after 37 completed weeks of gestation; O10.013 Pre-existing essential hypertension complicating pregnancy, third trimester; O24.415 Gestational diabetes mellitus in pregnancy, controlled by oral hypoglycemic drugs; O98.313 Other infections with a predominantly sexual mode of transmission complicating pregnancy, third trimester; A59.01 Trichomonal vulvovaginitis; Z3A.35 35 weeks gestation of pregnancy; Z79.82 Long term (current) use of aspirin; Z79.84 Long term (current) use of oral hypoglycemic drugs; Z79.899 Other long term (current) drug therapy
CPT/HCPCS: 36415; 36416; 71045; 80053; 82570; 84156; 84443; 85025; 85379; 87480; 87491; 87510; 87591; 87660; 93005; 93010; 93306; 96372; 99285; G0378; J0702

== ENCOUNTER 2017-12-23 15:19 | Day surgery (SDC) | payer OTHER ==
[2017-12-23] MEDS ORDERED: Betamet Acet/Betamet Na Ph 30 MG/5 ML VIAL IM SCH (16:45)
== END 2017-12-23 15:23 | disposition home or self-care (01) ==
LOC: L&D/OP 15:19
PROVIDERS: ATTEND Family Medicine
DX: Z29.8 Encounter for other specified prophylactic measures (principal); Z79.82 Long term (current) use of aspirin; Z79.899 Other long term (current) drug therapy
CPT/HCPCS: 82384; 82570; 83835; 96372

== ENCOUNTER 2017-12-28 14:11 | Inpatient (IN) | payer OTHER ==
[2017-12-28 15:17] VITALS: BMI 35.9
[2017-12-28] MEDS ORDERED: Ondansetron HCl/PF 4 MG/2 ML Vial IVP PRN (15:48)
[2017-12-28] MEDS ORDERED: Promethazine HCl 25 MG/ML VIAL IM PRN (15:48)
--- NOTE | 2017-12-28 15:55 | PDOC.FPROB ---
FMR OB H&P: HPI - History of Present Illness Chief Complaint: low POLINA at [facility] History of Present Illness: 27 yo @ 36.3 wks by LMP/1TMUS here from [facility] appt today for POLINA of 3. She denies NORIEGA, CP, racing heart, LOF, VB, N/V. Endorses baby movement. Primary Care Physician: KARUNA Cruz FMR OB H&P: Current - Care : 4 Para: 3 Gestational age: 36.3wks Due date: 01/23/2018 Dating Criteria: LMP/7.6wk US - OB Labs Blood type: A RH: positive Antibody Screen: negative HIV: negative RPR: negative HepBsAg: negative Rubella: immune Gonorrhea: negative Chlamydia: negative Pap Smear: negative for intraepithelial lesion or malignancy 1 hour gtt: 177 3 hour GTT: 101, 161, 164, 133 GBS: unknown H&H: 9.2/29.2 Platelets: 204 FMR OB H&P: History - Past Medical History PMH: HTN - OB History OB History: GDM, cHTN, Hx of Pre-E in prior with c/s at 36wks, Hx of placenta previa s/p c/s - Surgical History Sx History: csection x2 - Social History Social History: denies drug, alcohol, or tobacco use FMR OB H&P: Medications - Current Home Medications: Medication Instructions Recorded Confirmed Type Aspirin [Ecotrin Low Strength] 81 mg PO DAILY 12/14/17 12/28/17 History Labetalol [Normodyne] 300 mg PO BID 12/14/17 12/28/17 History Pnv 102/Iron/Folic/Dha/Lutein 1 tab PO DAILY 12/14/17 12/28/17 History [Similac Combo Pack] metFORMIN [Glucophage] 500 mg PO BID-WM #30 tab 12/16/17 12/28/17 Rx Metoclopramide HCl [Reglan] 5 mg PO BID PRN 12/21/17 12/28/17 History diphenhydrAMINE [Benadryl] 25 mg PO HS PRN 12/21/17 12/28/17 History Ferrous Sulfate 325 mg PO BID #60 tablet 12/22/17 12/28/17 Rx metroNIDAZOLE [Flagyl] 250 mg PO TID #20 tab 12/22/17 12/28/17 Rx Allergies/Adverse Reactions: Allergies Allergy/AdvReac Type Severity Reaction Status Date / Time No Known Drug Allergies Allergy Verified 12/28/17 15:29 FMR OB H&P: ROS - Review of Systems General: denies: fever/chills Eyes: denies: vision changes, double vision Cardiovascular: denies: chest pain, palpitation Respiratory: denies: shortness of breath Gastrointestinal: denies: abdominal pain, diarrhea, constipation Genitourinary (Female): denies: incontinence, dysuria Musculoskeletal: denies: pain Neurologic: denies: numbness FMR OB H&P: Vital Signs - Maternal Vital signs: Vital Signs - First Documented Temp Pulse Resp BP Pulse Ox 98.3 F 112 H 20 140/83 98 12/28/17 15:09 12/28/17 15:09 12/28/17 15:09 12/28/17 15:09 12/28/17 15:09 - Heart Tones Variability: moderate Acceleration: absent Deceleration: absent Category: category 1 [place] contractions every: absent FMR OB H&P: Physical Exam - Physical Exam General: NAD, awake, alert and oriented HEENT: EOMI, MMM Neck: supple Heart: normal S1/S2, no murmurs/rubs/gallops, other (tachycardia) General: CTAB, no wheezing Abdomen: soft Musculoskeletal: normal gait and station Neurological: sensation to pain,touch and proprioception grossly normal FMR OB H&P: A/P - Problem List (1) Current Visit: No Status: Acute Qualifiers: Weeks of gestation: 35 weeks Qualified Code(s): Z3A.35 - 35 weeks gestation of (2) Chronic hypertension affecting Current Visit: No Status: Chronic Code(s): O10.919 - UNSP PRE-EXISTING HTN COMP , UNSP TRIMESTER (3) Gestational diabetes Current Visit: No Status: Chronic Code(s): O24.419 - GESTATIONAL DIABETES MELLITUS IN , UNSP CONTROL Qualifiers: Trimester: third trimester (4) Tachycardia Current Visit: No Status: Acute Code(s): R00.0 - TACHYCARDIA, UNSPECIFIED (5) Oligohydramnios Current Visit: Yes Status: Acute Code(s): O41.00X0 - OLIGOHYDRAMNIOS, UNSP TRIMESTER, NOT APPLICABLE OR UNSP Assessment and Plan: 27 yo at 36.3 here for oligohydramnios. Oligohydramnios Will request records from [facility] of the and visit today. Will monitor FHT and toco as well as get a kick count. Admit the patient and plan for c/section in the AM. has received steroids last week x2 GDM accuchecks q6hrs CC diet continue metformin cHTN BP mildly elevated, will continue to monitor for severe range pressures. Hx of PreE pre-e labs negative so far in this , monitor Tachycardia still present in this visit, evaluated at previous visit with no etiology noted Hx of placenta previa anterior fundal placenta Disposition: stable, admit and monitor, plan to do c/section in the AM Discussion: Date/Time: 12/28/17 4712 This H&P was discussed with Dr. Boogie who agree with the above documentation and plan. Signature: Nima Acevedo DO, PGY3
[2017-12-29] MEDS ORDERED: CEFAZOLIN/Water 2 GM/20 ML SYRINGE SLOW IVP SCH (09:45)
[2017-12-29] MEDS ORDERED: Lactated Ringer's 1,000 ML IV SCH (09:45)
[2017-12-29] MEDS ORDERED: Bicitra 30 ML UDCUP PO SCH (09:45)
[2017-12-29] MEDS ORDERED: Morphine PF 1 MG/ML SYR ONE (10:10)
[2017-12-29] MEDS ORDERED: Glycopyrrolate 0.2 MG/ML 5 ML SYRINGE ONE (10:11)
[2017-12-29] MEDS ORDERED: PHENYLEPHRINE-NS 100 MCG/ML 10 ML SYRINGE ONE ×2 (10:11→15:30)
[2017-12-29] MEDS ORDERED: Ketorolac Tromethamine 30 MG/ML VIAL ONE ×2 (10:11→15:30)
[2017-12-29] MEDS ORDERED: Ondansetron HCl/PF 4 MG/2 ML Vial ONE ×2 (10:11→15:30)
[2017-12-29] MEDS ORDERED: Oxytocin 10 UNITS/ML VIAL ONE (10:11)
[2017-12-29 10:12] LABS: Hemoglobin 9.4 g/dL (12.0-16.0); Mean Corpuscular HGB CONC 31.4 g/dL (32.0-36.0); Mean Corpuscular Hemoglobin 23.8 pg (27.0-31.0); Mean Corpuscular Volume 75.9 fL (78.0-98.0); Mean Platelet Volume 10.8 fL (7.4-10.4); Platelet Count 196 thou/uL (130-400); RBC Distribution Width 19.2 % (11.5-14.5); Red Blood Cell (RBC) Count 3.95 mill/uL (4.20-5.40); White Blood Cell (WBC) Count 10.8 thou/uL (4.8-10.8)
[2017-12-29] MEDS ORDERED: Bupivacaine 0.75% W/DEXTROSE 8.25% 2 ML AMP ONE (10:12)
[2017-12-29] MEDS ORDERED: Lidocaine 1% PF 5 ML VIAL ONE ×2 (10:12→11:12)
[2017-12-29 10:29] LABS: Glucose 84 mg/dL (70-105)
[2017-12-29] MEDS ORDERED: L&D-Morphine 4 MG/ML VIAL SLOW IVP PRN (10:34)
[2017-12-29] MEDS ORDERED: Eucerin (Mineral Oil/Petrolatum,White) 30 gm Jar TOP PRN (10:34)
[2017-12-29] MEDS ORDERED: HYDROmorphone 2 MG/ML VIAL SLOW IVP PRN (10:34)
[2017-12-29] MEDS ORDERED: Naloxone HCl 0.4 mg/ml Vial IVP PRN ×2 (10:34)
[2017-12-29] MEDS ORDERED: Meperidine HCl/PF 25 MG/ML VIAL SLOW IVP PRN (10:34)
[2017-12-29] MEDS ORDERED: Promethazine HCl 25 MG SUPP PR PRN (10:34)
[2017-12-29] MEDS ORDERED: Naloxone HCl 0.4 mg/ml Vial IV PRN (10:34)
[2017-12-29] MEDS ORDERED: Promethazine HCl 25 MG/ML VIAL IM PRN (10:34)
[2017-12-29] MEDS ORDERED: diphenhydrAMINE 50 MG/ML VIAL IVP PRN (10:34)
[2017-12-29] MEDS ORDERED: Ondansetron HCl/PF 4 MG/2 ML Vial IVP PRN ×3 (10:34→13:33)
[2017-12-29] MEDS ORDERED: Communication Order-Pharmacy FS SCH (10:45)
[2017-12-29] MEDS ORDERED: Ketorolac Tromethamine 30 MG/ML VIAL IVP SCH (10:45)
[2017-12-29 11:55] LABS: HBSAg Index 0.18 S/CO (0-0.99); Hep B Surf Ag Non-Reactive S/CO (NonReactive); Syphilis Antibody Nonreactive (Nonreactive); Syphilis Antibody Index 0.06 S/CO (<1.00 Non-Reactive)
[2017-12-29] MEDS ORDERED: Simethicone Chewable 80 MG TAB PO PRN (13:33)
[2017-12-29] MEDS ORDERED: Lanolin Ointment 7 GM TUBE TOP PRN (13:33)
[2017-12-29] MEDS ORDERED: NS / Oxytocin 40 units/1000ml 1,000 ML IV SCH (13:33)
[2017-12-29] MEDS ORDERED: Acetaminophen 325 MG TAB PO PRN (13:33)
[2017-12-29] MEDS ORDERED: Adacel (T-DAP) 0.5 ML VIAL IM ONE (18:00)
[2017-12-29] MEDS ORDERED: Sodium Chloride 0.9% 10 ML ONE (20:51)
[2017-12-29] MEDS: Docusate Calcium (SURFAK) 240 MG CAP PO SCH (22:01)
[2017-12-29] MEDS: Ketorolac Tromethamine 30 MG/ML VIAL IVP PRN (22:01)
[2017-12-29] MEDS: Ferrous Sulfate 325 MG TAB PO SCH (22:01)
[2017-12-29] MEDS ORDERED: Acetaminophen/Codeine 30-300mg Tablet PO PRN (22:45)
[2017-12-30 05:39] LABS: Hemoglobin 8.5 g/dL (12.0-16.0); Mean Corpuscular HGB CONC 32.4 g/dL (32.0-36.0); Mean Corpuscular Hemoglobin 24.6 pg (27.0-31.0); Mean Corpuscular Volume 76.1 fL (78.0-98.0); Mean Platelet Volume 10.9 fL (7.4-10.4); Platelet Count 170 thou/uL (130-400); RBC Distribution Width 19.5 % (11.5-14.5); Red Blood Cell (RBC) Count 3.45 mill/uL (4.20-5.40); White Blood Cell (WBC) Count 12.2 thou/uL (4.8-10.8)
[2017-12-30] MEDS ORDERED: Sodium Chloride 0.9% 10 ML ONE (06:12)
[2017-12-30] MEDS: Ketorolac Tromethamine 30 MG/ML VIAL IVP PRN (06:19)
--- NOTE | 2017-12-30 08:52 | PDOC.PP ---
Post Progress Note Post Day #: 2 Subjective: States she had some pain last night but feels better this morning. No concerns. Discussed plan of care for patient and baby today. She expressed understanding. PO intake tolerated: yes Flatus: no Ambulation: yes Vital Signs (12 hours) Temp Pulse Resp BP Pulse Ox 12/30/17 08:44 98.1 F 92 20 129/78 99 12/30/17 08:05 100 12/30/17 04:10 98.3 F 95 18 135/72 12/30/17 00:00 98.1 F 95 18 134/73 98 12/29/17 22:12 90 18 130/60 99 Weight Weight 94.801 kg - Physical Examination General: NAD Cardiovascular: no m/r/g, RRR Respiratory: clear to auscultation bilaterally, non-labored breathing Abdominal: + bowel sounds, lochia, no distention, appropriately TTP Fundus firm & at: umbilicus Extremities: negative homans (B) Skin: CS incision dry & intact Neurological: no gross focal deficits Psychiatric: A&Ox3, normal affect Result Diagrams: 12/30/17 04:50 12/29/17 09:58 Additional Labs: Post Labs Blood Type O POSITIVE 12/29/17 09:58 Hep Bs Antigen Non-Reactive S/CO (NonReactive) 12/29/17 09:58 (1) care following delivery Code(s): Z39.2 - ENCOUNTER FOR ROUTINE FOLLOW-UP Status: Acute Comment: Post operative H&H is appropriate. Pain controlled. Plan for d/c tomorrow. (2) Chronic hypertension Code(s): I10 - ESSENTIAL (PRIMARY) HYPERTENSION Status: Chronic Comment: BP WNL off labetalol. Will hold for now and monitor closely. (3) Gestational diabetes Code(s): O24.419 - GESTATIONAL DIABETES MELLITUS IN , UNSP CONTROL Status: Chronic Qualifiers: Gestational diabetes mellitus control: oral hypoglycemic-controlled Trimester: third trimester Qualified Code(s): O24.415 - Gestational diabetes mellitus in , controlled by oral hypoglycemic drugs Comment: continue metformin. (4) Anemia Code(s): D64.9 - ANEMIA, UNSPECIFIED Status: Acute Qualifiers: Anemia type: iron deficiency Iron deficiency anemia type: unspecified iron deficiency Qualified Code(s): D50.9 - Iron deficiency anemia, unspecified Comment: PO Iron supplementation. does not meet threshold for blood transfusion. (5) Microcytic anemia Code(s): D50.9 - IRON DEFICIENCY ANEMIA, UNSPECIFIED Status: Acute
[2017-12-30] MEDS: Docusate Calcium (SURFAK) 240 MG CAP PO SCH ×2 (08:56→21:33)
[2017-12-30] MEDS: Ferrous Sulfate 325 MG TAB PO SCH ×2 (08:56→21:32)
[2017-12-30] MEDS: Prenatal Vitamin 1 TAB PO SCH (08:56)
--- NOTE | 2017-12-30 09:37 | OP-2 ---
DATE OF PROCEDURE: 12/29/2017 RESIDENT SURGEON: Thai Cruz M.D. SLITTER PROCESSED FILM SURGEON: Samantha Montes D.O. ATTENDING SURGEON: Joe Boogie M.D. PROCEDURE: Repeat low transverse . ANESTHESIA: Spinal. QUANTITATIVE BLOOD LOSS: 525 mL. PREOPERATIVE DIAGNOSES: 1. intrauterine . 2. Chronic hypertension. 3. Gestational diabetes. 4. Oligohydramnios. 5. Concern for VSD on anatomy scan. 6. History of section x2. 7. Anemia of . 8. History of placenta previa. 9. History of preeclampsia. 10. Anemia of POSTOPERATIVE DIAGNOSES: 1. intrauterine , delivered. 2. Chronic hypertension. 3. Gestational diabetes. 4. Oligohydramnios. 5. Concern for VSD on anatomy scan. 6. History of section x2. 7. Anemia of . 8. History of placenta previa. 9. History of preeclampsia. 10. Anemia of INDICATIONS: Ms. Lei is a 27-year-old G4, P 2-1-0-3 at 36 weeks and 4 days by last menstrual period consistent with first trimester ultrasound. She presented on the day prior to the procedure from [facility] with concern for low POLINA of 3cm. She is asymptomatic at that time and reported movement. Given her multiple comorbidities and now new onset lower fluid levels, she elected to be observed overnight with a scheduled repeat on the following day. DESCRIPTION OF PROCEDURE: After risks, benefits, and alternatives were explained and she was given preoperative antibiotics of cefazolin 2 grams IV. She was taken to the operating room and spinal anesthesia was initiated. She was placed in supine position, prepped and draped in the usual sterile fashion. Pfannenstiel incision was made with scalpel and carried down to the level of fascia which was sharply nicked. The overlying subcutaneous fat was dissected away from the fascia. The fascial incision was extended in the superolateral fashion using a curved Slater scissors. The superior and inferior edges of the fascia were elevated from the rectus muscles and were bluntly and sharply dissected away from the underlying rectus muscle. A hemostat was used to bluntly divide the rectus muscles, which were then further divided manually. The peritoneum was entered bluntly and extended manually. There was thick scar tissue noted along the lower portion of the linea alba and peritoneum. This was inspected and found to be free of bladder and was taken down using Bovie cautery. The fundus of uterus was palpated and noted to be free of adhesions. An Kendrick O retractor was then placed providing adequate visualization of the lower uterine segment. The bladder reflection was noted to be inferior to the proposed site of the hysterotomy, so a bladder flap was not created. A clean scalpel was used to score the lower uterine segment, which was then carried down sharply in the midline. An Allis clamp was used to bluntly enter the uterine cavity and hysterotomy was then extended in the caudocranial fashion. Amniotomy was performed using an Allis clamp and a small amount of clear fluid was noted. The head was then elevated manually and delivered through the hysterotomy along with the rest of body using fundal pressure. No nuchal cord was noted. The infant had good tone, cry, and grimace at time of . Delayed cord clamping of 1 minute was utilized. The cord was then cut and clamped and the infant was handed to the awaiting team. Cord blood was then collected and sent for analysis. The placenta was delivered using fundal pressure and noted to be intact. The uterine cavity was curetted x2 with a dry laparotomy sponge. Primary hysterotomy closure was performed using 0 Monocryl in the running locking fashion. Several small areas of venous bleeding were noted along the hysterotomy, so a second imbricating layer was performed. There were two areas along the hysterotomy that were noted to still be bleeding , so 3 [id number] stitches using 0 monocryl were placed and hemostasis was then noted. The apices were inspected second time and noted to be hemostatic. The Kendrick O retractor was then removed and the hysterotomy and both cortices were inspected and noted to be hemostatic. Normal appearing ovaries and fallopian tubes were noted. The peritoneum was inspected and noted to have a small amount of bleeding along the inferior edge, which was controlled with Bovie cautery. The rectus muscle and fascia were inspected and all bleeding was controlled using the Bovie. The fascia was reapproximated using a running nonlocking 0 PDS. The subcutaneous tissues were irrigated with sterile saline and the skin was closed using a 4-0 Monocryl in a running subcuticular fashion. Dermabond was applied over the top of the incision. Counts were correct x3. Patient tolerated the procedure well and went to recovery room in stable condition. FINDINGS: 1. appropriate gestational age viable male born at 11:40 with Apgars of 8 and 9 at 1 and 5 minutes respectively. 2. Minimal adhesions in the abdominal cavity. 3. Grossly normal placenta with three-vessel cord sent to pathology due to chronic hypertension, gestational diabetes, and a new onset oligohydramnios. 4. Kendrick catheter draining clear urine. Dr. Boogie was present for the entire procedure. PIERRE
[2017-12-30] MEDS ORDERED: metFORMIN 500 MG TAB PO SCH (10:00)
[2017-12-30] MEDS: Acetaminophen/Codeine 30-300mg Tablet PO PRN ×3 (11:58→23:06)
[2017-12-30] MEDS: Ibuprofen 800 MG TAB PO SCH ×2 (14:09→21:32)
[2017-12-30] MEDS: metFORMIN 500 MG TAB PO SCH (17:35)
[2017-12-31] MEDS: Ibuprofen 800 MG TAB PO SCH ×3 (05:25→21:09)
--- NOTE | 2017-12-31 07:42 | PDOC.PP ---
Post Progress Note Post Day #: 2 Subjective: States she had some significant pain last night and a lot of gas pain this morning. States she is having difficulty and would like to have some more time to work with the loss prevention consultant. PO intake tolerated: yes Flatus: no Ambulation: yes Vital Signs (12 hours) Pulse Resp BP Pulse Ox 12/31/17 05:26 92 18 131/83 12/30/17 23:10 99 20 143/83 H 99 Weight Weight 94.801 kg - Physical Examination General: NAD Cardiovascular: no m/r/g, RRR Respiratory: clear to auscultation bilaterally, non-labored breathing Abdominal: + bowel sounds, no distention, appropriately TTP Fundus firm & at: 3 cm below umbilcus Extremities: negative homans (B) Skin: CS incision dry & intact, no rash Neurological: no gross focal deficits Psychiatric: A&Ox3, normal affect Result Diagrams: 12/30/17 04:50 12/29/17 09:58 Additional Labs: Post Labs Blood Type O POSITIVE 12/29/17 09:58 Hep Bs Antigen Non-Reactive S/CO (NonReactive) 12/29/17 09:58 (1) care following delivery Code(s): Z39.2 - ENCOUNTER FOR ROUTINE FOLLOW-UP Status: Acute Comment: Post operative H&H is appropriate. Pain control difficult at this time. Having difficulty breast feeding. will keep overnight and reassess tomorrow. (2) Chronic hypertension Code(s): I10 - ESSENTIAL (PRIMARY) HYPERTENSION Status: Chronic Comment: BP started to elevated last night to mid 140s/90s. restart labetalol (3) Gestational diabetes Code(s): O24.419 - GESTATIONAL DIABETES MELLITUS IN , UNSP CONTROL Status: Chronic Qualifiers: Gestational diabetes mellitus control: oral hypoglycemic-controlled Trimester: third trimester Qualified Code(s): O24.415 - Gestational diabetes mellitus in , controlled by oral hypoglycemic drugs Comment: continue metformin. (4) Anemia Code(s): D64.9 - ANEMIA, UNSPECIFIED Status: Acute Qualifiers: Anemia type: iron deficiency Iron deficiency anemia type: unspecified iron deficiency Qualified Code(s): D50.9 - Iron deficiency anemia, unspecified Comment: PO Iron supplementation. does not meet threshold for blood transfusion. - Assessment/Plan plan for d/c tomorrow. <Thai Cruz - Last Filed: 12/31/17 07:40> Vital Signs (12 hours) Temp Pulse Resp BP Pulse Ox 12/31/17 09:39 94 12/31/17 08:54 97.8 F 94 20 139/80 97 12/31/17 05:26 92 18 131/83 Weight Weight 94.801 kg Result Diagrams: 12/30/17 04:50 12/29/17 09:58 Additional Labs: Post Labs Blood Type O POSITIVE 12/29/17 09:58 Hep Bs Antigen Non-Reactive S/CO (NonReactive) 12/29/17 09:58 <Stephanie Au - Last Filed: 12/31/17 11:19> Attending Addendum - Attending Addendum Date/Time: 12/31/17 1115 I personally evaluated the patient and discussed the management with Dr. Cruz. I agree with the History, Examination, Assessment and Plan documented above with any addition or exceptions noted below- Patient without complaints. Ambulating. Tolerating diet. Afebrile VSS A/P: 1) POD#2 s/p repeat LCT C/S - continue routine care. Nursing to assist with . Anticipate d/c home in AM. <Stephanie Au - Last Filed: 12/31/17 11:19>
[2017-12-31] MEDS: metFORMIN 500 MG TAB PO SCH ×2 (09:38→19:29)
[2017-12-31] MEDS: Prenatal Vitamin 1 TAB PO SCH (09:38)
[2017-12-31] MEDS: Docusate Calcium (SURFAK) 240 MG CAP PO SCH ×2 (09:39→21:09)
[2017-12-31] MEDS: Ferrous Sulfate 325 MG TAB PO SCH ×2 (09:39→21:09)
[2017-12-31] MEDS: Labetalol 100 MG TAB PO SCH ×2 (09:39→21:12)
[2017-12-31] MEDS: Acetaminophen/Codeine 30-300mg Tablet PO PRN (14:56)
[2018-01-01] MEDS: Acetaminophen/Codeine 30-300mg Tablet PO PRN ×2 (02:18→12:58)
[2018-01-01] MEDS: Ibuprofen 800 MG TAB PO SCH (05:35)
--- NOTE | 2018-01-01 07:52 | PDOC.PP ---
Post Progress Note Post Day #: 3 Subjective: Pain better controlled. No concerns. states she feels ready to go home. breast feeding better today. Vital Signs (12 hours) Temp Pulse Resp BP BP Pulse Ox 12/31/17 21:12 98 149/73 H 12/31/17 21:00 98.2 F 98 18 149/73 H 98 Weight Weight 94.801 kg - Physical Examination General: NAD Cardiovascular: no m/r/g, RRR Respiratory: clear to auscultation bilaterally, non-labored breathing Abdominal: + bowel sounds, no distention, appropriately TTP Fundus firm & at: 2 cm above pubic bone Extremities: negative homans (B) Skin: CS incision dry & intact, no rash Neurological: no gross focal deficits Psychiatric: A&Ox3, normal affect Result Diagrams: 12/30/17 04:50 12/29/17 09:58 Additional Labs: Post Labs Blood Type O POSITIVE 12/29/17 09:58 Hep Bs Antigen Non-Reactive S/CO (NonReactive) 12/29/17 09:58 (1) care following delivery Code(s): Z39.2 - ENCOUNTER FOR ROUTINE FOLLOW-UP Status: Acute Comment: Post operative H&H is appropriate. Improved breast feeding and pain control. will d/c today. (2) Chronic hypertension Code(s): I10 - ESSENTIAL (PRIMARY) HYPERTENSION Status: Chronic Comment: BP improved. will f/u in 2 days in clinic (3) Gestational diabetes Code(s): O24.419 - GESTATIONAL DIABETES MELLITUS IN , UNSP CONTROL Status: Chronic Qualifiers: Gestational diabetes mellitus control: oral hypoglycemic-controlled Trimester: third trimester Qualified Code(s): O24.415 - Gestational diabetes mellitus in , controlled by oral hypoglycemic drugs Comment: continue metformin. (4) Anemia Code(s): D64.9 - ANEMIA, UNSPECIFIED Status: Acute Qualifiers: Anemia type: iron deficiency Iron deficiency anemia type: unspecified iron deficiency Qualified Code(s): D50.9 - Iron deficiency anemia, unspecified Comment: PO Iron supplementation. does not meet threshold for blood transfusion. - Assessment/Plan d/c today <Thai Cruz - Last Filed: 01/01/18 07:50> Vital Signs (12 hours) Temp Pulse Resp BP BP Pulse Ox 01/01/18 11:54 98.2 F 100 20 133/85 01/01/18 09:08 98.0 F 93 17 139/81 97 01/01/18 08:52 100 01/01/18 08:30 98 149/73 H Weight Weight 94.801 kg Result Diagrams: 12/30/17 04:50 12/29/17 09:58 Additional Labs: Post Labs Blood Type O POSITIVE 12/29/17 09:58 Hep Bs Antigen Non-Reactive S/CO (NonReactive) 12/29/17 09:58 <Stephanie Au - Last Filed: 01/01/18 19:06> Attending Addendum - Attending Addendum Date/Time: 01/01/181904 I personally evaluated the patient and discussed the management with Dr. Cruz I agree with the History, Examination, Assessment and Plan documented above with any addition or exceptions noted below- Patient without complaints. Pain well controlled. Ambulating/voiding. Afebrile VSS. A/P: 1) POD#3 s/p repeat LCT C/S- doing well; plan to d/c home today. . <Stephanie Au - Last Filed: 01/01/18 19:06>
[2018-01-01] MEDS: metFORMIN 500 MG TAB PO SCH (08:29)
[2018-01-01] MEDS: Ferrous Sulfate 325 MG TAB PO SCH (08:29)
[2018-01-01] MEDS: Docusate Calcium (SURFAK) 240 MG CAP PO SCH (08:30)
[2018-01-01] MEDS: Prenatal Vitamin 1 TAB PO SCH (08:30)
[2018-01-01] MEDS: Labetalol 100 MG TAB PO SCH (08:30)
[2018-01-01 11:56] VITALS: BP 133/85; TEMP 98.2
== END 2018-01-01 13:04 | disposition home or self-care (01) | DRG 786 ==
LOC: L&D/OP 14:11 → L&D 18:53 → 3SE 12-29 20:15
PROVIDERS: ADMIT Family Medicine; ATTEND Family Medicine
PROC: 10D00Z1 Extraction of Products of Conception, Low, Open Approach (ICD-10-PCS; principal; 2017-12-30)
DX: O41.03X0 Oligohydramnios, third trimester, not applicable or unspecified (principal); O99.42 Diseases of the circulatory system complicating childbirth; O10.02 Pre-existing essential hypertension complicating childbirth; O24.425 Gestational diabetes mellitus in childbirth, controlled by oral hypoglycemic drugs; O34.211 Maternal care for low transverse scar from previous cesarean delivery; Z3A.36 36 weeks gestation of pregnancy; Z37.0 Single live birth; R00.0 Tachycardia, unspecified; O99.02 Anemia complicating childbirth; D50.9 Iron deficiency anemia, unspecified; Z79.84 Long term (current) use of oral hypoglycemic drugs
CPT/HCPCS: 36415; 36416; 51702; 82947; 85027; 86780; 86850; 86900; 86901; 87340; 88307; 99285; J1885; J2001; J2274; J2405; J2590; J3490

== ENCOUNTER 2019-06-11 09:40 | Emergency (ER) | payer OTHER, SELFPAY | END 2019-06-11 09:59 | disposition home or self-care (01) | LOC: ERS 09:40 | DX: H66.92 Otitis media, unspecified, left ear (principal); H60.502 Unspecified acute noninfective otitis externa, left ear; I10 Essential (primary) hypertension; F41.9 Anxiety disorder, unspecified; Z79.899 Other long term (current) drug therapy | CPT/HCPCS: 99282 ==